=== PATIENT | female | born 1990 | race Hispanic/Latino ===

== ENCOUNTER 2024-08-07 17:30 | Emergency (ER) | payer BC ==
[~2024-08-07] VITALS: Ht 160 cm; Wt 97.5 kg
[2024-08-07] MEDS ORDERED: DiphenhydrAMINE HCL 50 MG/ML VIAL IM STA (17:34)
--- NOTE | 2024-08-07 17:37 | ERN ---
ED Note History of Present Illness Stated Complaint: GENERALIZED RASH AFTER ANT BITE Chief Complaint: Allergic Reaction Time Seen by MD: 17:31 Dictation: PATIENT IS A 34-YEAR-OLD FEMALE HERE WITH A GENERALIZED MACULAR CONFLUENT RASH SHE HAS STARTED AN HOUR AND A HALF AGO. SHE STATES SHE WAS STUNG WITH THE AUNT TO HER CHEST AND THEN THE RASH SPREAD OVER HER BODY. NO ANGIOEDEMA NO SHORTNESS A BREATH. VOICE IS CLEAR STATES SHE TOOK BENADRYL PRIOR TO ARRIVAL. NO PRIMARY CARE DOCTOR Allergies: Coded Allergies: No Known Drug Allergies (Unverified Allergy, Unknown, 08/07/24) Past Medical History Past Medical History: Other Surgical History: Cholecystectomy History: Not Applicable RN Note Reviewed/Agreed w/PFSH: Yes Review of System Dictation CONSTITUTIONAL: NEGATIVE EXCEPT FOR HPI HEAD/FACE: NEGATIVE EXCEPT FOR HPI EENT: NEGATIVE EXCEPT FOR HPI RESPIRATORY: NEGATIVE EXCEPT FOR HPI GASTROINTESTINAL/ABDOMINAL: NEGATIVE EXCEPT FOR HPI GENITOURINARY: NEGATIVE EXCEPT FOR HPI MUSCULOSKELETAL: NEGATIVE EXCEPT FOR HPI INTEGUMENTARY: NEGATIVE EXCEPT FOR HPI CONFLUENT MACULAR RASH NEUROLOGICAL/PSYCH: NEGATIVE EXCEPT FOR HPI HEMATOLOGIC/LYMPHATIC: NEGATIVE EXCEPT FOR HPI ALL SYSTEMS NEGATIVE, EXCEPT NOTED ABOVE. 13 POINT REVIEW OF SYSTEMS ASSESSED AND ALL NEGATIVE EXCEPT FOR ABOVE. Initial Vital Sign VS Vital Signs Date Time Temp Pulse Resp B/P (MAP) Pulse Ox O2 Delivery O2 Flow Rate FiO2 08/07/24 17:31 98.6 124 18 143/97 99 Room Air 0 08/07/24 17:40 21 Physical Exam Dictation VITAL SIGNS REVIEWED GENERAL APPEARANCE: ALERT, ORIENTED X 3, MILD ACUTE DISTRESS, WELL DEVELOPED, NOURISHED. OBESE HEAD AND FACE: NON-TRAUMATIC. EYES: PERRL, PINK CONJUNCTIVAS, EYELID NO TRAUMA, ANTERIOR CHAMBER WITH ARCUS SENILIS. EARS: PINNAS INTACT AND NO SIGNS OF TRAUMA OR ERYTHEMA EAR CANALS CLEAR AND NO DISCHARGE TM NO ERYTHEMA NOSE: NO DISCHARGE, NO BLEEDING. OROPHARYNX: MOUTH NORMAL, TONGUE PINK, NO ANGIOEDEMA, VOICE IS CLEAR PHARYNX CLEAR,NO ERYTHEMA, TONSILS NO EXUDATES, NO ABSCESSES NOTED, MUCOUS MEMBRANE MOIST NECK: SUPPLE, NON-TENDER, NO THYROMEGALY, NO MASSES, NO JVD, NO BRUITS BREAST:DEFERRED CHEST:NO TENDERNESS, NO CREPITUS, NO PARADOXICAL MOVEMENT, NO RETRACTIONS LUNGS:CLEAR, WELL-VENTILATED, SYMMETRIC, NO RALES, NO WHEEZING, NO RHONCHI, NO STRIDOR, GOOD BREATH SOUNDS BILATERALLY BILATERAL BREATH SOUNDS CLEAR HEART: REGULAR RATE, REGULAR RHYTHM, NO MURMUR, NO GALLOPS VASCULAR: NO PERIPHERAL EDEMA, ABDOMEN: SOFT, POSITIVE BOWEL SOUNDS, NONDISTENDED, NO GUARDING, NONTENDER, NO REBOUND, NO MASSES NO HEPATOMEGALY, NO SPLENOMEGALY, NO BOTELLO'S SIGN, NO HERNIAS. RECTAL: DEFERRED GENITAL: DEFERRED NEUROLOGICAL: NORMAL SPEECH, MOTOR FUNCTION INTACT, SENSORY FUNCTION INTACT MUSCULOSKELETAL: NECK NONTENDER, FULL RANGE OF MOTION, BACK NONTENDER, FULL RANGE OF MOTION, EXTREMITIES: NONTENDER, FULL RANGE OF MOTION SKIN: COLOR PINK, DRY, CONFLUENT FINE MACULAR RASH TO BODY AND ARMS CHEST BACK LYMPHATIC: DEFERRED Results (Laboratory/Radiology) Labs Reviewed?: Yes ED Course ED Course Orders Procedure Category Date Status Time Dexamethasone 4mg/Ml PHA 08/07/24 Complete 1ml Vial (Dexametha 18:00 Diphenhydramine Hcl PHA 08/07/24 Complete (Benadryl Inj) 17:34 Famotidine 20mg Tab PHA 08/07/24 In Process (Pepcid 20mg Tab) 18:00 Dexamethasone 4mg/Ml PHA 08/07/24 Logged 1ml Vial (Dexametha 18:00 Diphenhydramine Hcl PHA 08/07/24 Logged (Benadryl Inj) 18:00 Current Medications Medications (Trade) Dose Ordered Sig/Andrzej Route PRN Reason Start Time Stop Time Status Last Admin Dose Admin Dexamethasone Sodium Phosphate (dexaMETHasone 4MG/ML 1ML VIAL) 8 mg ONCE ONCE IM 08/07/24 18:00 08/07/24 17:45 DC Dexamethasone Sodium Phosphate (dexaMETHasone 4MG/ML 1ML VIAL) 8 mg ONCE ONCE IVP 08/07/24 18:00 08/07/24 18:01 Diphenhydramine HCl (BENAdryl INJ) 50 mg ONCE ONCE IV 08/07/24 18:00 08/07/24 18:01 UNV Diphenhydramine HCl (BENAdryl INJ) 50 mg ONCE STAT IM 08/07/24 17:34 08/07/24 17:45 DC Famotidine (Pepcid 20mg Tab) 40 mg ONCE ONCE PO 08/07/24 18:00 08/07/24 18:01 Vital Signs Date Time Temp Pulse Resp B/P (MAP) Pulse Ox O2 Delivery O2 Flow Rate FiO2 08/07/24 17:40 98.1 109 16 135/74 98 Room Air* 0 21 08/07/24 17:31 98.6 124 18 143/97 99 Room Air 0 1750/BILATERAL BREATH SOUNDS CLEAR TO AUSCULTATION RASH IS FADING AFTER TREATMENT WITH STEROIDS DIPHENHYDRAMINE AND PEPCID. IN A LIST OF PRIMARY CARE DOCTORS ON STAFF AND TOLD SHE COULD FOLLOW UP WITH FRIDAY. Medical Decision Making MDM MEDICAL DISCHARGE MAKING BASED ON EMPIRIC TREATMENT FOR ACUTE ALLERGIC REACTION TO AN INSECT BITE. BILATERAL BREATH SOUNDS CLEAR AFTER TREATMENT RASHES FADING NO ANGIOEDEMA DX & DISP Disposition: Discharge Departure Impression: Primary Impression: Acute allergic reaction Additional Impression: Allergy to ant bite Condition: Stable Scripts Diphenhydramine HCl (Benadryl) 50 Mg Cap 50 MG PO Q6H for itching/rash, #20 CAP 0 Refills Prov: TANIKA DAVIDSON [employer] 08/07/24 Methylprednisolone (Medrol) 4 Mg Tab.ds.pk 1 TAB PO AD for 6 Days, #21 TAB 0 Refills 6 on day 1 then reduce by one tablet daily until gone Prov: TANIKA DAVIDSON [employer] 08/07/24 Additional Instructions: FOLLOW-UP WITH PRIMARY CARE PROVIDER IN 1 TO 2 DAYS. TAKE MEDICATIONS DIRECTED HERE IN THE EMERGENCY ROOM. OKAY TO CONTINUE HOME MEDICATIONS UNLESS OTHERWISE DISCUSSED DURING YOUR VISIT IN THE EMERGENCY ROOM TODAY. RETURN TO YOUR NEAREST EMERGENCY ROOM IF SYMPTOMS WORSEN OR IF THERE IS NO IMPROVEMENT. CALL 911 IF YOU NEED IMMEDIATE ASSISTANCE. TAKE TYLENOL OR MOTRIN [id number] NEEDED AND IF NO CONTRAINDICATIONS ARE PRESENT. INCREASE ORAL HYDRATION. A WOUND CULTURE OR URINE CULTURE WAS ORDERED HERE IN THE EMERGENCY ROOM DEPARTMENT PLEASE FOLLOW-UP WITH PRIMARY CARE PROVIDER AND ADVISE THEM TO GET REPEAT PORTS FROM OUR FACILITY. IF YOU HAD ANY DEVIN WRAP/SPLINTS DIALLO T WERE APPLIED HERE, PLEASE DO NOT REMOVE THEM UNTIL YOU SEE YOUR PRIMARY CARE OR SPECIALTY. LIST ANT STINGS AN ALLERGY. TAKE BENADRYL 50 MG EVERY 6 HOURS FOR THREE MORE DOSES. TAKE MEDROL DOSEPAK DIRECTED UNTIL GONE. FOLLOW UP WITH ONE OF THE PRIMARY CARE DOCTORS ON THE LIST PROVIDED YOU ON FRIDAY FOR MANAGEMENT. Referrals: SELF,REFERRAL (PCP) Time of Disposition: 17:54 I have reviewed the case, and I agree with, Diagnosis and Plan TANIKA DAVIDSON NP Aug 07, 2024 17:37
[2024-08-07] MEDS: FAMOTIDINE 20MG TAB PO ONE (17:53)
[2024-08-07] MEDS ORDERED: DIPH50 PO (17:54)
[2024-08-07] MEDS: dexaMETHasone SOD PHOSPHATE 4 MG/ML 1ML VIAL IVP ONE (17:54)
[2024-08-07] MEDS: DiphenhydrAMINE HCL 50 MG/ML VIAL IV ONE (17:54)
[2024-08-07] MEDS ORDERED: METH4TAB3 PO (17:54)
[2024-08-07] MEDS ORDERED: dexaMETHasone SOD PHOSPHATE 4 MG/ML 1ML VIAL IM ONE (18:00)
[2024-08-07 18:35] VITALS: BP 128/80; PULSE 90; RESP 16; TEMP 98; O2SAT 99
== END 2024-08-07 18:44 | disposition home or self-care (01) ==
LOC: EDH 17:30
DX: S40.862A Insect bite (nonvenomous) of left upper arm, initial encounter (principal); S40.861A Insect bite (nonvenomous) of right upper arm, initial encounter; T78.40XA Allergy, unspecified, initial encounter; W57.XXXA Bitten or stung by nonvenomous insect and other nonvenomous arthropods, initial encounter; Y93.89 Activity, other specified; Y92.89 Other specified places as the place of occurrence of the external cause; Y99.8 Other external cause status
CPT/HCPCS: 99284; 96374; 96375; J1100; J1200